=== PATIENT | female | born 1965 | race Caucasian/White ===

== ENCOUNTER 2016-03-09 19:44 | Emergency (ER) | payer BC ==
--- NOTE | 2016-03-09 20:08 | ED.PDOC ---
History of Present Illness - General Chief Complaint: GI Problem Stated Complaint: achy, N/V/D Time Seen by Provider: 03/09/16 20:08 Source: patient - History of Present Illness Initial Comments: Ms. Micah Patel 50 y/o f with history of metastatic melanoma stated that she had initial episode of diarrhea this am and also Ct abd/pelvis done this am and was able to do the procedure and drank the oral contrast that was done in [facility] then late this afternoon she started to have N/V and multiple episodes of diarrhea,fever with body aches.She also stated that she goes for chemotherapy every 3 weeks. Timing/Duration: other - this am Severity: moderate Improving Factors: nothing Worsening Factors: nothing Associated Symptoms: fever/chills, nausea/vomiting Allergies/Adverse Reactions: Allergies Aspirin [From Percodan] Allergy (Mild, Unverified 06/08/12 13:38) Oxycodone [From Percodan] Allergy (Mild, Unverified 06/08/12 13:38) Home Medications: Ambulatory Orders Megace Oral 03/09/16 Synthroid 03/09/16 Zofran 03/09/16 Review of Systems - Review of Systems Constitutional: States: see HPI EENTM: States: no symptoms reported Respiratory: States: no symptoms reported Cardiology: States: no symptoms reported Gastrointestinal/Abdominal: States: see HPI Genitourinary: States: no symptoms reported Musculoskeletal: States: muscle pain Skin: States: other - history of melanoma metastatic Neurological: States: no symptoms reported Endocrine: States: no symptoms reported Hematologic/Lymphatic: States: no symptoms reported Past Medical History (General) - Patient Medical History Hx Asthma: Yes Hx Congestive Heart Failure: No Hx Hypertension: Yes Hx Diabetes: No Hx Cancer: Yes - -diagnosed 2012 Surgical History: tonsillectomy Other Surgeries:: infusaport,excision bladder tumor - Vaccination History Hx Tetanus, Diphtheria Vaccination: Yes Hx Influenza Vaccination: No - Social History Hx Alcohol Use: No - Female History Patient is a Female of Child Bearing Age (10 -59 yrs old): No Patient : No Family Medical History - Family History Mother Family History: No Known Living Status: Hx Family Hypertension: Yes - mom Hx Cardiac Disease: Yes - dad Hx Family Diabetes: Yes - mom Physical Exam - Physical Exam General Appearance: Alert, No apparent distress Ears, Nose, Throat: hearing grossly normal, normal ENT inspection, normal pharynx Neck: non-tender, full range of motion, supple Respiratory: chest non-tender, lungs clear, normal breath sounds, no respiratory distress Cardiovascular/Chest: normal peripheral pulses, regular rate, rhythm, no edema, no gallop, no JVD, no murmur Gastrointestinal/Abdominal: normal bowel sounds, non tender, soft, no organomegaly, no pulsatile mass Back Exam: normal inspection, no CVA tenderness, no vertebral tenderness Extremity: normal range of motion, non-tender, normal inspection Neurologic: alert, normal mood/affect, oriented x 3 Skin Exam: normal color, warm/dry, cyanosis Lymphatic: no adenopathy Progress - Results/Orders Results/Orders: 03/09/16 20:10 Lactated Ringers [Lr] 1,000 ml IVS ONCE Chest,2 Views [RAD] Stat URINALYSIS Stat Laboratory Results WBC 11.5 K/mm3 (4.8-10.8) H 03/09/16 20:33 RBC 4.14 M/mm3 (4.20-5.40) L 03/09/16 20:33 Hgb 13.4 gm/dL (12.0-16.0) 03/09/16 20:33 Hct 38.8 % (36.0-47.0) 03/09/16 20:33 MCV 93.7 fl (81.0-99.0) 03/09/16 20:33 MCH 32.3 pg (27.0-31.0) H 03/09/16 20:33 MCHC 34.5 g/dL (33.0-37.0) 03/09/16 20:33 RDW 12.7 % (11.5-14.5) 03/09/16 20:33 Plt Count 230 K/mm3 (130-400) 03/09/16 20:33 MPV 7.5 fl (7.40-10.4) 03/09/16 20:33 Absolute Neuts (auto) 8.60 K/uL (1.8-6.8) H 03/09/16 20:33 Absolute Lymphs (auto) 1.70 K/uL (1.0-3.4) 03/09/16 20:33 Absolute Monos (auto) 0.80 K/uL (0.2-0.8) 03/09/16 20:33 Absolute Eos (auto) 0.40 K/uL (0.0-0.4) 03/09/16 20:33 Absolute Basos (auto) 0.10 K/uL (0.0-0.1) 03/09/16 20:33 Neutrophils % 74.6 % (42.0-78.0) 03/09/16 20:33 Lymphocytes % 14.4 % (20.0-50.0) L 03/09/16 20:33 Monocytes % 7.1 % (2.0-9.0) 03/09/16 20:33 Eosinophils % 3.3 % (1.0-5.0) 03/09/16 20:33 Basophils % 0.6 % (0.0-2.0) 03/09/16 20:33 Sodium 137 mmol/L (135-145) 03/09/16 20:33 Potassium 3.5 mmol/L (3.6-5.0) L 03/09/16 20:33 Chloride 107 mmol/L (101-111) 03/09/16 20:33 Carbon Dioxide 25 mmol/L (21-31) 03/09/16 20:33 Anion Gap 8.5 (12-18) L 03/09/16 20:33 BUN 12 mg/dL (7-18) 03/09/16 20:33 Creatinine 0.73 mg/dL (0.6-1.3) 03/09/16 20:33 BUN/Creatinine Ratio 16.4 (10-20) 03/09/16 20:33 Random Glucose 79 mg/dL (70-105) 03/09/16 20:33 Serum Osmolality 272.5 mOsm/L (275-295) L 03/09/16 20:33 Lactic Acid 1.0 mmol/L (0.5-2.2) 03/09/16 20:33 Calcium 8.4 mg/dL (8.4-10.2) 03/09/16 20:33 Total Bilirubin 1.0 mg/dL (0.2-1.0) 03/09/16 20:33 AST 38 IU/L (10-42) 03/09/16 20:33 ALT 20 IU/L (10-60) 03/09/16 20:33 Alkaline Phosphatase 73 IU/L (42-121) 03/09/16 20:33 Serum Total Protein 6.6 gm/dL (6.4-8.2) 03/09/16 20:33 Albumin 3.4 g/dl (3.2-5.5) 03/09/16 20:33 Globulin 3.2 gm/dL (2.3-3.5) 03/09/16 20: Albumin/Globulin Ratio 1.1 (1.1-1.9) 03/09/16 20: Lipase 37 U/L (22-51) 03/09/16 20:33 Flu swab-negative 03/09/16 21:16 CLOSTRIDIUM DIFFICILE AG/TOXIN Urgent Laboratory Results WBC 11.5 K/mm3 (4.8-10.8) H 03/09/16 20:33 RBC 4.14 M/mm3 (4.20-5.40) L 03/09/16 20:33 Hgb 13.4 gm/dL (12.0-16.0) 03/09/16 20:33 Hct 38.8 % (36.0-47.0) 03/09/16 20:33 MCV 93.7 fl (81.0-99.0) 03/09/16 20:33 MCH 32.3 pg (27.0-31.0) H 03/09/16 20:33 MCHC 34.5 g/dL (33.0-37.0) 03/09/16 20:33 RDW 12.7 % (11.5-14.5) 03/09/16 20:33 Plt Count 230 K/mm3 (130-400) 03/09/16 20:33 MPV 7.5 fl (7.40-10.4) 03/09/16 20:33 Absolute Neuts (auto) 8.60 K/uL (1.8-6.8) H 03/09/16 20:33 Absolute Lymphs (auto) 1.70 K/uL (1.0-3.4) 03/09/16 20:33 Absolute Monos (auto) 0.80 K/uL (0.2-0.8) 03/09/16 20: Absolute Eos (auto) 0.40 K/uL (0.0-0.4) 03/09/16 20:33 Absolute Basos (auto) 0.10 K/uL (0.0-0.1) 03/09/16 20:33 Neutrophils % 74.6 % (42.0-78.0) 03/09/16 20:33 Lymphocytes % 14.4 % (20.0-50.0) L 03/09/16 20:33 Monocytes % 7.1 % (2.0-9.0) 03/09/16 20:33 Eosinophils % 3.3 % (1.0-5.0) 03/09/16 20:33 Basophils % 0.6 % (0.0-2.0) 03/09/16 20:33 Sodium 137 mmol/L (135-145) 03/09/16 20:33 Potassium 3.5 mmol/L (3.6-5.0) L 03/09/16 20:33 Chloride 107 mmol/L (101-111) 03/09/16 20:33 Carbon Dioxide 25 mmol/L (21-31) 03/09/16 20:33 Anion Gap 8.5 (12-18) L 03/09/16 20:33 BUN 12 mg/dL (7-18) 03/09/16 20:33 Creatinine 0.73 mg/dL (0.6-1.3) 03/09/16 20:33 BUN/Creatinine Ratio 16.4 (10-20) 03/09/16 20:33 Random Glucose 79 mg/dL (70-105) 03/09/16 20:33 Serum Osmolality 272.5 mOsm/L (275-295) L 03/09/16 20:33 Lactic Acid 1.0 mmol/L (0.5-2.2) 03/09/16 20:33 Calcium 8.4 mg/dL (8.4-10.2) 03/09/16 20:33 Total Bilirubin 1.0 mg/dL (0.2-1.0) 03/09/16 20:33 AST 38 IU/L (10-42) 03/09/16 20:33 ALT 20 IU/L (10-60) 03/09/16 20:33 Alkaline Phosphatase 73 IU/L (42-121) 03/09/16 20:33 Serum Total Protein 6.6 gm/dL (6.4-8.2) 03/09/16 20:33 Albumin 3.4 g/dl (3.2-5.5) 03/09/16 20:33 Globulin 3.2 gm/dL (2.3-3.5) 03/09/16 20:33 Albumin/Globulin Ratio 1.1 (1.1-1.9) 03/09/16 20:33 Lipase 37 U/L (22-51) 03/09/16 20:33 Urine Color Yellow (Yellow) 03/09/16 21:17 Urine Appearance Clear (Clear) 03/09/16 21:17 Urine pH 5.0 (4.5-7.8) 03/09/16 21:17 Ur Specific [place] 1.010 (1.005-1.030) 03/09/16 21:17 Urine Protein Negative mg/dL 03/09/16 21:17 Urine Glucose (UA) Negative mg/dL (Negative) 03/09/16 21: Urine Ketones Negative mg/dL (NEGATIVE) 03/09/16 21:17 Urine Blood Large (Negative) H 03/09/16 21:17 Urine Nitrite Negative 03/09/16 21:17 Urine Bilirubin Negative (NEGATIVE) 03/09/16 21:17 Urine Urobilinogen 0.2 mg/dL (0.2-1.0) 03/09/16 21:17 Ur Leukocyte Esterase Trace (Negative) H 03/09/16 21:17 Urine RBC 5-10 /hpf H 03/09/16 21:17 Urine WBC 5-10 /hpf H 03/09/16 21:17 Ur Epithelial Cells 3-5 /hpf 03/09/16 21:17 Urine Bacteria Rare 03/09/16 21:17 No N/V/D while in er - EKG/XRAY/CT XRAY: chest - no acute abnormality noted Departure - Departure Clinical Impression: Acute viral syndrome, Acute diarrhea, Hx of malignant melanoma Nausea & vomiting Qualifiers: Vomiting Intractability: unspecified Time of Disposition: 22:24 Disposition: Discharge to Home or Self Care Departure Forms: ED Discharge - Pt. Copy, Patient Portal Self Enrollment Instructions: Probiotics May Decrease Intensity and Duration of Diarrhea Due to Infection, Diarrhea, Nausea and Vomiting-Adult Referrals: Sravanthi Brown NP [Primary Care Provider] - 1-2 Weeks Home Medications: Ambulatory Orders Megace Oral 03/09/16 Synthroid 03/09/16 Zofran 03/09/16 Additional Instructions: RETURN TO EMERGENCY ROOM NEEDED;Take Tylenol 500 mg. every 4-6 hors as needed for fever
[2016-03-09] MEDS: ONDANSETRON INJ 4 MG/2 ML VIAL IV ONE (20:21)
[2016-03-09] MEDS: LACTATED RINGERS 1,000 ML IVS ONE (20:22)
[2016-03-09 20:56] VITALS: TEMP 99.7
[2016-03-09 22:38] VITALS: BP 127/77; O2SAT 97
--- NOTE | 2016-03-12 14:09 | RAD ---
EXAM DESCRIPTION: Chest,2 Views CLINICAL HISTORY: fever COMPARISON: None FINDINGS: Cardiac silhouette is within normal limits. There is an infusion catheter with the tip ending at the level of the superior vena cava. There is no focal parenchymal or pleural disease. There is no acute osseous process visualized. IMPRESSION: No evidence of acute cardiopulmonary disease. Electronically signed by: Vaughn Nails MD 03/09/2016 8:47 PM TRIMMING OPERATOR
--- NOTE | 2016-04-06 03:55 | RAD ---
EXAM DESCRIPTION: Chest,2 Views CLINICAL HISTORY: fever COMPARISON: None FINDINGS: Cardiac silhouette is within normal limits. There is an infusion catheter with the tip ending at the level of the superior vena cava. There is no focal parenchymal or pleural disease. There is no acute osseous process visualized. IMPRESSION: No evidence of acute cardiopulmonary disease. Electronically signed by: Vaughn Nails MD 03/09/2016 8:47 PM COMPRESSOR STATION ENGINEER
== END 2016-03-09 22:37 | disposition home or self-care (01) ==
LOC: ER 19:44
DX: B34.9 Viral infection, unspecified (principal); R19.7 Diarrhea, unspecified; C43.9 Malignant melanoma of skin, unspecified; C79.9 Secondary malignant neoplasm of unspecified site; Z88.6 Allergy status to analgesic agent; Z79.899 Other long term (current) drug therapy; J45.909 Unspecified asthma, uncomplicated; I10 Essential (primary) hypertension
CPT/HCPCS: 71020; 80053; 81001; 83605; 83690; 85025; 87502; J2405; J7120

== ENCOUNTER → 2018-02-16 | Outpatient (CLI) | payer MEDICARE | LOC: RESP 11:32 | PROVIDERS: ATTEND Nurse Practitioner Family | DX: I10 Essential (primary) hypertension (principal) ==

== ENCOUNTER → 2018-03-15 | Outpatient (CLI) | payer MEDICARE | LOC: YCFC.O 12:09 | PROVIDERS: ATTEND Family Medicine | DX: B34.9 Viral infection, unspecified (principal) ==

== ENCOUNTER → 2018-04-05 | Outpatient (CLI) | payer MEDICARE ==
--- NOTE | 2018-04-06 12:30 | MAM ---
EXAM DESCRIPTION: k : Digital Mammography. CLINICAL HISTORY: 53 years Female ANNUAL SCREENING . No complaints. No personal history of breast cancer. Remote Family history of breast cancer. History of melanoma. Postmenopausal 8 years. No HRT. Lifetime risk of developing breast cancer (Tyrer-Cuzick model)(%): 10.7. COMPARISON: Baseline study at this facility.. No prior reports available. TECHNIQUE: Bilateral CC and MLO projection full-field images, digital tomosynthesis mammographic technique. Bilateral digital 2-D full-field MLO images. CAD not available for tomosynthesis or 2-D images. FINDINGS: The breast parenchymal density pattern is: Scattered areas of fibroglandular density. No skin thickening or nipple retraction. Focal asymmetry in the posterior third of the right breast at the 11:30 clock position, approximately 8 cm from the nipple. Also focal asymmetry retroareolar right breast extending into the upper outer quadrant approximately 2 cm from the nipple. Small bilateral solitary microcalcifications. No new focal, stellate mass or density, focal asymmetry , and no suspicious microcalcifications left breast. IMPRESSION: BI-RADS CATEGORY: 0 - INCOMPLETE- Need additional imaging evaluation. FOLLOW-UP: Recall for additional imaging: Targeted breast ultrasound of the regions of interest in the right breast. Consider follow-up diagnostic mammographic imaging if indicated by sonographic images.. Written communication concerning the IMPRESSION and Follow-up, will be mailed to the patient and referring health care provider. Electronically signed by: Rufus Prado MD 04/06/2018 12:27 PM POLICE MANAGER
== END ==
LOC: MAMMO 08:30
PROVIDERS: ATTEND Nurse Practitioner Family
DX: Z12.31 Encounter for screening mammogram for malignant neoplasm of breast (principal)

== ENCOUNTER → 2018-04-11 | Outpatient (CLI) | payer MEDICARE ==
--- NOTE | 2018-04-12 10:59 | US ---
EXAM DESCRIPTION: Breast,Right: Ultrasound CLINICAL HISTORY: 53 yearsFemaleABNORMAL MAMMO. Stage IV malignant melanoma. Pelvic metastasis. Currently remission. COMPARISON: Bilateral screening digital breast tomosynthesis 04/05/2018. TECHNIQUE: Transcutaneous scanning of the right breast utilizing polanco-scale and Doppler modes. Scanning performed by the national park ranger observed by Dr. Prado. FINDINGS: Scanning of the upper outer quadrant of the right breast. Specifically 8 cm from the nipple. Heterogeneous mixture of fibroglandular and fatty echotexture. No dominant solid mass or cyst. No parenchymal edema or large calcifications. No overlying skin changes. Normal vascularity. IMPRESSION: Benign exam. BIRAD CATEGORY: 2 BENIGN FINDINGS. RECOMMENDATIONS: FOLLOW UP: Return to routine digital bilateral mammographic screening, one year interval from March 2018. The FINDINGS and the FOLLOW-UP plan were reviewed in person with the patient after the examination. Written communication explaining the IMPRESSION and FOLLOW-UP will be mailed to the patient and referring care provider. According to the [employer], yearly mammograms are recommended starting at age 40 and continuing as long as a woman is in good health. Any breast change noted on a breast self-exam should be reported promptly to the patient's healthcare provider. Breast MRI is recommended for women with an approximately 20-25% or greater lifetime risk of breast cancer, including women with a strong family history of breast or ovarian cancer and women who have been treated for Hodgkin's disease. A negative mammographic report should not delay tissue diagnosis in patients with significant clinical history or physical findings. Extremely dense breast tissue limits the sensitivity of digital mammography. Electronically signed by: Rufus Prado MD 04/12/2018 10:56 AM [facility]
== END ==
LOC: US 14:09
PROVIDERS: ATTEND Nurse Practitioner Family
DX: R92.8 Other abnormal and inconclusive findings on diagnostic imaging of breast (principal)

== ENCOUNTER 2018-07-05 16:24 | Inpatient (IN) | payer MEDICARE ==
--- NOTE | 2018-07-05 17:04 | ED.PDOC ---
History of Present Illness - General Chief Complaint: GI Problem Stated Complaint: N/V/D, weakness Time Seen by Provider: 07/05/18 17:03 Source: patient Exam Limitations: no limitations - History of Present Illness Initial Comments: Modesta Patel 53 y/o female with history of melanoma and currently receiving chemotherapy came to ER with multiple episodes of N/V/D since last night.No blood in the stool,no hematemesis,no melena.Had recently received chemotherapy 4 weeks ago. Timing/Duration: 24 hours Severity: severe Improving Factors: nothing Worsening Factors: eating Associated Symptoms: shortness of breath, weakness, other - see hpi Allergies/Adverse Reactions: Allergies Aspirin [From Percodan] Allergy (Mild, Verified 07/05/18 16:48) Oxycodone [From Percodan] Allergy (Mild, Verified 07/05/18 16:48) Prochlorperazine [From Compazine] Allergy (Verified 07/05/18 16:48) Home Medications: Ambulatory Orders Megace Oral 03/09/16 Synthroid 03/09/16 Zofran 03/09/16 Review of Systems - Review of Systems Constitutional: States: see HPI, weakness EENTM: States: no symptoms reported Respiratory: States: no symptoms reported Cardiology: States: no symptoms reported Gastrointestinal/Abdominal: States: see HPI, diarrhea, vomiting Musculoskeletal: States: no symptoms reported Skin: States: see HPI Neurological: States: no symptoms reported All other Systems: Reviewed and Negative, No Change from Baseline Past Medical History (General) - Patient Medical History Hx Asthma: Yes Hx Congestive Heart Failure: No Hx Hypertension: Yes Hx Diabetes: No Hx Cancer: Yes - -diagnosed 2012;Melanoma Surgical History: other - Vaccination History Hx Tetanus, Diphtheria Vaccination: Yes Hx Influenza Vaccination: No Hx Pneumococcal Vaccination: No - Social History Hx Tobacco Use: Yes Hx Alcohol Use: No Hx Substance Use: No Hx Physical Abuse: No Hx Emotional Abuse: No Hx Suspected Abuse: No - Female History Patient is a Female of Child Bearing Age (10 -59 yrs old): No Patient : No Family Medical History - Family History Mother Family History: No Known Living Status: Hx Family Hypertension: Yes - mom Hx Cardiac Disease: Yes - dad Hx Family Diabetes: Yes - mom Physical Exam - Physical Exam General Appearance: Alert, Comfortable, No apparent distress Eye Exam: bilateral normal Ears, Nose, Throat: hearing grossly normal, normal ENT inspection, normal pharynx Neck: non-tender, full range of motion, supple, normal inspection Respiratory: chest non-tender, lungs clear, normal breath sounds, no respiratory distress Cardiovascular/Chest: normal peripheral pulses, regular rate, rhythm Peripheral Pulses: radial,right: 2+, radial,left: 2+ Gastrointestinal/Abdominal: normal bowel sounds, non tender, soft, no organomegaly Back Exam: no CVA tenderness, no vertebral tenderness Neurologic: alert, oriented x 3 Skin Exam: normal color, warm/dry Progress - Progress Progress: 07/05/18 20:36 Vital Signs - 8 hr 07/05/18 07/05/18 07/05/18 16:30 17:30 18:30 Temperature 100.5 F H 100.5 F H 100.4 F H Pulse Rate [ 117 H 100 H 102 H pulse ox] Respiratory 20 20 20 Rate Blood Pressure 84/56 87/59 92/67 [Right Arm] O2 Sat by Pulse 93 L 98 99 Oximetry 07/05/18 19:00 Temperature Pulse Rate [ 96 H pulse ox] Respiratory 22 Rate Blood Pressure 97/74 [Right Arm] O2 Sat by Pulse 98 Oximetry - Results/Orders Results/Orders: 07/05/18 16:50 URINALYSIS Stat 07/05/18 17:05 IV Care:Saline Lock per Protoc QSHIFT CLOSTRIDIUM DIFFICILE AG/TOXIN Urgent URINALYSIS Stat 07/05/18 18:30 Norepinephrine Bitartrate [Levophed] 4 mg Dextrose 5% 250Ml [D5W 250ml] 250 ml IVPB PRN 07/05/18 19:19 Sodium Chloride 0.9% 1000ML [Ns 1000 ml] 1,000 ml IVS ONCE 07/05/18 20:09 EKG Assessment ONCE 07/05/18 20:15 EKG STAT Laboratory Results - last 24 hr 07/05/18 07/05/18 07/05/18 17:02 17:02 17:02 WBC 7.7 RBC 5.47 H Hgb 16.8 H Hct 50.3 H MCV 91.9 MCH 30.7 MCHC 33.4 RDW 13.2 Plt Count 279 MPV 7.1 L Absolute Neuts (auto) 4.20 Absolute Lymphs (auto) 2.70 Absolute Monos (auto) 0.70 Absolute Eos (auto) 0.10 Absolute Basos (auto) 0.00 Neutrophils % 54.5 Lymphocytes % 34.6 Monocytes % 9.3 H Eosinophils % 1.0 Basophils % 0.6 PT INR PTT (SP) Sodium 133 L Potassium 3.3 L Chloride 104 Carbon Dioxide 17 L Anion Gap 15.3 BUN 28 H Creatinine 3.22 H BUN/Creatinine Ratio 8.7 L Random Glucose 93 Serum Osmolality 271.5 L Lactic Acid 1.1 Calcium 8.8 Total Bilirubin 0.6 AST 20 ALT 13 Alkaline Phosphatase 64 Creatine Kinase CK-MB (CK-2) CK-MB (CK-2) % Troponin I Serum Total Protein 7.3 Albumin 3.8 Globulin 3.5 Albumin/Globulin Ratio 1.1 07/05/18 07/05/18 07/05/18 17:11 17:11 19:17 WBC RBC Hgb Hct MCV MCH MCHC RDW Plt Count MPV Absolute Neuts (auto) Absolute Lymphs (auto) Absolute Monos (auto) Absolute Eos (auto) Absolute Basos (auto) Neutrophils % Lymphocytes % Monocytes % Eosinophils % Basophils % PT 11.9 H INR 1.19 H PTT (SP) 125.8 H* Sodium Potassium Chloride Carbon Dioxide Anion Gap BUN Creatinine BUN/Creatinine Ratio Random Glucose Serum Osmolality Lactic Acid Calcium Total Bilirubin AST ALT Alkaline Phosphatase Creatine Kinase 92 CK-MB (CK-2) 2.1 CK-MB (CK-2) % Not Reportable Troponin I 0.06 H 0.06 H Serum Total Protein Albumin Globulin Albumin/Globulin Ratio Discuss test result with patient and family;For hospital admit - EKG/XRAY/CT EKG: Sinus Comments: HR-94;TWI ant.leads XRAY: chest - no acute abnormalities Departure - Departure Clinical Impression: Nausea, vomiting and diarrhea, Acute dehydration, WILLIAM (acute kidney injury), History of malignant melanoma of skin, S/P chemotherapy, time since 4-12 weeks, Elevated troponin I measurement Time of Disposition: 21:01 Disposition: Admit Patient Condition: Fair Departure Forms: Patient Portal Self Enrollment Referrals: Quiana Greenwood NP [Primary Care Provider] - 1-2 Weeks Home Medications: Ambulatory Orders Megace Oral 03/09/16 Synthroid 03/09/16 Zofran 03/09/16 Decision To Admit - Decistion To Admit Decision to Admit Reason: Admit from ER Decision to Admit Date: 07/05/18 - D/W Lorelei Bruno-ANP/Hospitalist Decision to Admit Time: 20:58
[2018-07-05] MEDS ORDERED: LACTATED RINGERS 1,000 ML IVS ONE (17:05)
[2018-07-05] MEDS ORDERED: ONDANSETRON INJ 4 MG/2 ML VIAL IV ONE ×2 (17:06→19:31)
--- NOTE | 2018-07-05 17:42 | RAD ---
EXAM DESCRIPTION: XR Chest, 2 Views CLINICAL HISTORY: 53 years Female sob TECHNIQUE: Two views of the chest. COMPARISON: Comparison is made to the prior examination dated 03/09/2016. FINDINGS: Stable right chest wall permacath with its tip projecting over the SVC. The lungs are clear without focal consolidation, effusion, or pneumothorax. The cardiomediastinal silhouette and central pulmonary vasculature are normal. No acute osseous abnormalities. IMPRESSION: No acute cardiopulmonary abnormalities. Electronically signed by: An Torres MD 07/05/2018 5:40 PM CDT
[2018-07-05] MEDS ORDERED: NOREPINEPHRINE BITARTRATE 4 MG/4 ML VIAL IVPB ONE (18:26)
[2018-07-05] MEDS ORDERED: DEXTROSE 5% 250ML 250 ML ONE (18:26)
[2018-07-05] MEDS ORDERED: MEROPENEM 500 MG in SODIUM CHL 0.9% 50ML MIN-BAG+ 50 ML IVPB ONE (18:28)
[2018-07-05] MEDS ORDERED: NOREPINEPHRINE BITARTRATE 4 MG in DEXTROSE 5% 250ML 250 ML IVPB SCH (18:30)
[2018-07-05] MEDS ORDERED: MEROPENEM 500 MG VIAL IVPB ONE (18:41)
[2018-07-05] MEDS ORDERED: SODIUM CHL 0.9% 50ML MIN-BAG+ 50 ML IVPB ONE (18:41)
[2018-07-05] MEDS ORDERED: SODIUM CHLORIDE 0.9% 1000ML 1,000 ML ONE (19:18)
[2018-07-05] MEDS ORDERED: SODIUM CHLORIDE 0.9% 1000ML 1,000 ML IVS ONE (19:19)
[2018-07-05] MEDS ORDERED: ACETAMINOPHEN 325 MG TAB PO ONE (21:18)
--- NOTE | 2018-07-05 21:34 | HP ---
SUPERVISING PHYSICIAN: Bethel Gómez MD CHIEF COMPLAINT: Nausea, vomiting and diarrhea. HISTORY OF PRESENT ILLNESS: This is a 53-year-old female with a history of melanoma of the thigh of her right lower extremity. She is currently on chemotherapy. She came to the Emergency Room with several episodes of nausea, vomiting and diarrhea since Wednesday night. She denied any blood in her stool, no hematemesis, no melena. Her last chemotherapy treatment was 4 weeks ago. She is presently in the process of switching from Dr. Lima in [place] as her oncologist to a melanoma specialist at [facility]. She sees Dr. Mclain at [facility]. On Wednesday, she started having the nausea, vomiting and diarrhea that included some chills and a subjective fever. Her last chemotherapy as stated before was about a month ago. In the Emergency Room, her initial vital signs showed a temperature of 100.5 with a pulse rate of 117. Her blood pressure was 84/56 with a respiratory rate of 20, O2 saturation 93%. She received several liters of fluids and lab studies were done showing a WBC of 7.7. There was no left shift on differential. Her hemoglobin was 16.8 with hematocrit 50.3. PT was 11.9 with INR 1.19, PTT 125.8. Sodium 133, potassium 3.3, chloride 104, carbon dioxide 17, BUN 28, creatinine 3.22. Her baseline creatinine is about 0.7. Lactic acid was 1.8. The remainder of her metabolic panel including her liver function tests were negative. She did have a slightly elevated troponin of 0.06 and a repeat 2 hours later troponin also showed 0.06. She was also given some Merrem in the Emergency Room. A urinalysis was not obtained until she got to the floor. The urinalysis showed a moderate amount of urine blood with a small amount of urine leukocyte esterase, 5 to 10 urine RBCs, too numerous to count urine WBCs and 3+ urine bacteria. A urine culture was obtained. There were no blood cultures drawn in the Emergency Room. I was called for hospital admission. PAST MEDICAL HISTORY: 1. Malignant melanoma of the skin of the lower extremity. 2. Melanoma of the bladder. 3. Hypothyroidism on supplementation. 4. Hypertension on medications. 5. Kidney stones. PAST SURGICAL HISTORY: 1. Excision of melanoma on the right thigh. 2. Tubal ligation. 3. Tonsillectomy. 4. Three TURBTs to remove the bladder tumors. MEDICATIONS: Per the EMR and awaiting verification. ALLERGIES: PERCODAN. SOCIAL HISTORY: She is . She has two children. She lives in [place]. She smokes approximately 1 pack of cigarettes daily. She denies any ETOH or illicit drug use. REVIEW OF SYSTEMS: GENERAL: Positive for fever and chills. Negative for weight changes. HEENT: Negative for sinus symptoms, ear pain, vision changes or sore throat. RESPIRATORY: Negative for wheezing, coughing or shortness of breath. CARDIAC: Negative for chest pain, palpitations or tachycardia. GASTROINTESTINAL: As per history of present illness. GENITOURINARY: Negative for hematuria, dysuria or polyuria, although she has had decreased urine output. MUSCULOSKELETAL: Negative for arthralgias, myalgias. SKIN: History for malignant melanoma of the right thigh. Otherwise, no lesions or rashes. NEUROLOGIC: Negative for headache, dizziness or seizures. PHYSICAL EXAMINATION: VITAL SIGNS: Temperature 100.5. Heart rate 96. Blood pressure 98/58. Respiratory rate 16. O2 saturation 98% on room air. GENERAL: This is a 53-year-old female patient who is sitting up in her hospital bed. She is in no acute distress. HEENT: Normocephalic, atraumatic. Pupils are equal and reactive. Oropharynx is clear. Oral mucous membranes are dry. NECK: Supple without mass. RESPIRATORY: Essentially clear to auscultation bilaterally. CARDIOVASCULAR: Regular rate and rhythm. GASTROINTESTINAL: Abdomen is soft, nondistended, diffusely, mildly tender. Bowel sounds are positive. EXTREMITIES: No cyanosis, clubbing or edema. NEUROLOGIC: Awake, alert and oriented times three. Cranial nerves II-XII are grossly intact. SKIN: Warm and dry. LABORATORY: Labs and films are as per history of present illness. Chest x-ray shows no acute abnormalities. IMPRESSION: 1. Acute kidney injury, most likely secondary to dehydration. Her normal creatinine is 0.7. Her admission creatinine was 3.2. 2. Nausea, vomiting and diarrhea, most likely gastrointestinal in origin. 3. Severe dehydration, most likely secondary to #2 and exacerbating #1. 4. History of malignant melanoma of the right thigh, currently being treated with chemotherapy. 5. Hypertension on antihypertensive. 6. Hypothyroidism on supplementation. 7. Current smoker, although she has not smoked since Wednesday and encouraged to stop. 8. History of melanoma of the bladder. PLAN: We will admit the patient to the hospital. She will get D5W with 0.5 amp of bicarb overnight. I will recheck her labs in the morning. I have ordered stool studies if she has additional diarrhea and antiemetics for the nausea and vomiting. She does have an appointment with her melanoma specialist at [facility] tomorrow at 3 PM and she will need close followup with Dr. Mclain at [facility]. I will continue her home medications as soon as they are verified. I have encouraged her to stop smoking. She has a proton pump inhibitor for ulcer prophylaxis as well as Lovenox for DVT prophylaxis. I am not too worried about her troponin being elevated as she has had no current chest pain and is most likely due to her dehydration as well as her kidney injury. Otherwise, we will continue to monitor the patient closely and follow as needed. #[id number] [facility]
[2018-07-05] MEDS ORDERED: SODIUM CHLORIDE 0.9% (FLUSH) 10 ML SYG IV PRN (22:06)
[2018-07-05] MEDS ORDERED: ONDANSETRON INJ 4 MG/2 ML VIAL IV PRN (22:06)
[2018-07-05] MEDS ORDERED: ENOXAPARIN SODIUM 30 MG/0.3 ML SYG SUBCU ONE (22:26)
[2018-07-05] MEDS ORDERED: DEXTROSE 5% 1000ML 1,000 ML IVS ONE (22:26)
[2018-07-05] MEDS ORDERED: SODIUM BICARBONATE VIAL 50 MEQ/50 ML VIAL ONE (22:26)
[2018-07-05] MEDS ORDERED: IV SET AND CAP CHANGE INJ INJ SCH (22:30)
[2018-07-05] MEDS: SODIUM BICARBONATE VIAL 75 MEQ in DEXTROSE 5% 1000ML 1,000 ML IVS PRN (22:36)
[2018-07-05] MEDS: ENOXAPARIN SODIUM 30 MG/0.3 ML SYG SUBCU SCH (22:37)
[2018-07-06] MEDS: PANTOPRAZOLE SODIUM TAB 40 MG PO SCH (05:40)
[2018-07-06] MEDS: ACETAMINOPHEN 325 MG TAB PO PRN ×2 (06:04→20:50)
[2018-07-06] MEDS ORDERED: SODIUM BICARBONATE VIAL 50 MEQ/50 ML VIAL ONE (08:42)
[2018-07-06] MEDS ORDERED: DEXTROSE 5% 1000ML 1,000 ML IVS ONE (08:42)
[2018-07-06] MEDS: SODIUM BICARBONATE VIAL 75 MEQ in DEXTROSE 5% 1000ML 1,000 ML IVS PRN (08:54)
[2018-07-06] MEDS: SODIUM CHLORIDE 0.9% (FLUSH) 10 ML SYG IV SCH ×2 (09:36→20:49)
[2018-07-06] MEDS ORDERED: MAGNESIUM SULFATE PREMIX 2GM 2 GM in PREMIX BAG 1 BAG IVPB ONE (18:58)
[2018-07-06] MEDS ORDERED: MAGNESIUM SULFATE PREMIX 2GM 50 ML IVPB ONE (19:05)
[2018-07-06] MEDS: KCL 40 MEQ/D5 1/2NS 1,000 ML IVS PRN (19:08)
[2018-07-06] MEDS: ENOXAPARIN SODIUM 30 MG/0.3 ML SYG SUBCU SCH (20:45)
--- NOTE | 2018-07-06 21:14 | PN ---
DATE: 07/06/18 SUPERVISING PHYSICIAN: Dre Gómez M.D. SUBJECTIVE: The patient is reporting that she is feeling a little bit better this morning. She has not had any nausea or vomiting since last night. She is actually able to take some clear liquids. OBJECTIVE: VITAL SIGNS: Temperature 97.6, pulse 85, blood pressure 118/78, respirations 14, satting 97% on room air. Weight is 72.7 kg. GENERAL: The patient is resting comfortably. Appears to be in no acute distress. She is alert. CHEST: Lung sounds are clear to auscultation, just slightly diminished towards the bases. HEART: Regular rate and rhythm. ABDOMEN: Soft, non-tender. Positive bowel sounds. EXTREMITIES: Without any edema. NEUROLOGIC: She is alert and oriented times three. SKIN: Warm and dry. LABORATORY: White count 5,000, hemoglobin 14.4, hematocrit 42.5, platelet count 238,000. Differential shows to be without a left shift. Coagulation studies repeated today show PT 12.1 and PTT of 36.6 with yesterday's PTT showing 125 which was apparently an error on the lab draw. Stool occult blood was negative. Stool culture is pending. Stool leukocytes show to be positive. C-Difficile toxin A and B times 2 samples is negative. Urine culture was pending. ASSESSMENT: 1. Acute kidney failure probably due prerenal azotemia from severe dehydration from probable viral gastroenteritis with creatinine showing to be returning to baseline levels. 2. Nausea, vomiting and diarrhea, probably viral gastroenteritis. 3. Severe dehydration secondary to #2 improving with fluids. 4. History of malignant melanoma of the right thigh being treated and followed by oncology and just recently finished chemotherapy. 5. Hypertension showing to be stable. 6. Hypothyroidism on supplementation. 7. Chronic nicotine addiction in a chronic smoker. 8. History of melanoma of the bladder. 9. Elevated troponin likely bumped from acute kidney injury with the patient having no chest pain and 12-lead EKG showing sinus rhythm without any ST or T wave changes to indicate acute ischemia or injury pattern. PLAN: Will continue with fluids at this point with D5W and a half amp of bicarb. Recheck her labs at 1800 today and adjust as needed. Will continue to monitor stool cultures. She will continue with antiemetics for any nausea or vomiting. I have advanced her diet as tolerated. Anticipate hopefully being able to discharge tomorrow once she is able to transition to outpatient management and is tolerating oral intake adequately enough to stay hydrated. Until then will continue to monitor and treat as needed. #[id number] [facility]
[2018-07-07] MEDS: KCL 40 MEQ/D5 1/2NS 1,000 ML IVS PRN (05:23)
[2018-07-07] MEDS: PANTOPRAZOLE SODIUM TAB 40 MG PO SCH (06:08)
[2018-07-07 06:20] VITALS: TEMP 97.8
[2018-07-07 08:31] VITALS: O2SAT 98
[2018-07-07] MEDS: SODIUM CHLORIDE 0.9% (FLUSH) 10 ML SYG IV SCH (09:10)
[2018-07-07 10:08] VITALS: BP 120/78
--- NOTE | 2018-07-08 11:11 | DS ---
SUPERVISING PHYSICIAN: Bethel Gómez MD ADMISSION DIAGNOSIS: 1. Acute kidney injury, most likely secondary to dehydration. Her normal creatinine is 0.7. Her admission creatinine was 3.2. 2. Nausea, vomiting and diarrhea, most likely gastrointestinal in origin. 3. Severe dehydration, most likely secondary to #2 and exacerbating #1. 4. History of malignant melanoma of the right thigh, currently being treated with chemotherapy. 5. Hypertension on antihypertensive. 6. Hypothyroidism on supplementation. 7. Current smoker, although she has not smoked since Wednesday and encouraged to stop. 8. History of melanoma of the bladder. DISCHARGE DIAGNOSIS: 1. Acute kidney failure probably due severe dehydration from viral gastroenteritis with creatinine no down to baseline levels after fluids. 2. Nausea, vomiting and diarrhea, probably viral gastroenteritis, resolved with treatment. 3. Severe dehydration due to #2, resolved with fluids. 4. History of malignant melanoma of the right thigh being treated and followed by oncology and just recently finished chemotherapy. 5. Hypertension showing to be stable. 6. Hypothyroidism on supplementation. 7. Chronic nicotine addiction in a chronic smoker. 8. History of melanoma of the bladder. 9. Elevated troponin likely due to acute kidney from brief hypotensive event from severe dehydration with no EKG changes or chest pain episodes. REASON FOR HOSPITALIZATION: This is a 53-year-old female with a history of melanoma of the thigh of her right lower extremity. She is currently on chemotherapy. She came to the Emergency Room with several episodes of nausea, vomiting and diarrhea since Wednesday night. She denied any blood in her stool, no hematemesis, no melena. Her last chemotherapy treatment was 4 weeks ago. She is presently in the process of switching from Dr. Lima in [place] as her oncologist to a melanoma specialist at [facility]. She sees Dr. Mclain at [facility]. On Wednesday, she started having the nausea, vomiting and diarrhea that included some chills and a subjective fever. Her last chemotherapy as stated before was about a month ago. In the Emergency Room, her initial vital signs showed a temperature of 100.5 with a pulse rate of 117. Her blood pressure was 84/56 with a respiratory rate of 20, O2 saturation 93%. She received several liters of fluids and lab studies were done showing a WBC of 7.7. There was no left shift on differential. Her hemoglobin was 16.8 with hematocrit 50.3. PT was 11.9 with INR 1.19, PTT 125.8. Sodium 133, potassium 3.3, chloride 104, carbon dioxide 17, BUN 28, creatinine 3.22. Her baseline creatinine is about 0.7. Lactic acid was 1.8. The remainder of her metabolic panel including her liver function tests were negative. She did have a slightly elevated troponin of 0.06 and a repeat 2 hours later troponin also showed 0.06. She was also given some Merrem in the Emergency Room. A urinalysis was not obtained until she got to the floor. The urinalysis showed a moderate amount of urine blood with a small amount of urine leukocyte esterase, 5 to 10 urine RBCs, too numerous to count urine WBCs and 3+ urine bacteria. A urine culture was obtained. There were no blood cultures drawn in the Emergency Room. The patient was admitted in stable condition. LABORATORY: Initial white count 7,700, hemoglobin 16.8 and hematocrit 50.3. At discharge and after fluids, white count was 5,000, hemoglobin 14.4, hematocrit 42.5. Platelet count was normal at 238. Differential was without a left shift. Coagulation studies initially showed PT 11.9, PTT 125.8. Retesting showed PTT corrected to 36.6. Chemistries initially on admission showed sodium 133, potassium 3.3, carbon dioxide 17, BUN 28, creatinine 3.22 with lactic acid 1.1, magnesium 1.8, liver functions within normal limits. Troponin slightly bumped at 0.06. After fluids and prior to discharge and replacement of potassium and magnesium, sodium was normal at 138, potassium 3.3, carbon dioxide normalized at 21, anion gap normal at 11 with BUN 6, creatinine 0.68. Magnesium 2.1. Urinalysis showed moderate amount of blood with small leukocyte esterase. Microscopic showed 5 to 10 RBCs, too numerous to count WBCs, 10 to 20 epithelials, 1+ amorphus, small amount of mucus, 3+ bacteria. MICROBIOLOGY: Urine culture pending. She had two C. difficile toxins on stool that were negative. Stool culture pending. Stool leukocyte positive. RADIOLOGY: Chest x-ray on admission per radiologic interpretation showed no acute cardiopulmonary abnormalities. HOSPITAL COURSE: Ms. Patel was admitted for severe dehydration and acute renal failure which was felt to be from acute gastroenteritis, viral etiology. She was started on IV fluids given the severe acidosis indicated by the low CO2 and renal function with creatinine 3.22. She was started on D5W with bicarb supplementation. This was continued. She was monitored closely with repeat BMPs and as her values improved and her creatinine corrected, she was changed to fluids and then was able to tolerate oral fluids as well as a diet. She was clinically stable with labs returning to baseline levels. Again, she was felt to be clinically stable enough to continue with outpatient management. She did initially on admission have some mild hypotension in the Emergency Room that was noted with blood pressure 84/56, heart rate 117 with low grade fever of 100.5. She was given a single dose of Merrem as there was a concern that she may be septic, but she responded to treatment quickly with fluid resuscitation and was able to stabilize and required no further antibiotic treatment. She was asymptomatic with regards to the possible cystitis which was probably exacerbated from chronic urinary bladder problems from her multiple surgeries, but again the patient was asymptomatic. She was showing no signs of infection. Therefore, no antibiotics were started during her treatment course other than what was given in the Emergency Room. DISCHARGE ASSESSMENT: VITAL SIGNS: Temperature 97.8. Pulse 70. Blood pressure 120/70. Respirations 16. Saturation 98% on room air. GENERAL APPEARANCE: The patient was resting comfortably and appeared to be in no acute distress. She was alert. CHEST: Clear to auscultation bilaterally without any notable rales, rhonchi or wheezing. HEART: Regular rate and rhythm. ABDOMEN: Soft, nontender. Positive bowel sounds. EXTREMITIES: No edema. NEUROLOGIC: Alert and oriented x3. SKIN: [place], warm and dry. PLAN: Ms. Patel was discharged on 07/07/18 to closely followup with her oncologist and her primary care provider, Quiana Greenwood, or with Dr. Mclain. She was encouraged to push fluids to prevent dehydration. Again, she was talked to about stopping smoking. She was to advance her diet as tolerated. She was to resume all home medications as instructed. She was to return to the hospital should she have any concerning symptoms. No new medications were prescribed at discharge. DISPOSITION: The patient was discharged home to care of family members. CONDITION AT DISCHARGE: Stable and improving. #[id number] [facility]
== END 2018-07-07 10:05 | disposition home or self-care (01) | DRG 683 ==
LOC: ER 16:24 → OBSVTOIN 21:34 → MS 21:34
PROVIDERS: ADMIT Nurse Practitioner Acute Care; ATTEND Nurse Practitioner Family
DX: N17.9 Acute kidney failure, unspecified (principal); E87.2 Acidosis; E86.0 Dehydration; N30.90 Cystitis, unspecified without hematuria; A08.4 Viral intestinal infection, unspecified; I10 Essential (primary) hypertension; E03.9 Hypothyroidism, unspecified; I95.9 Hypotension, unspecified; R74.8 Abnormal levels of other serum enzymes; F17.210 Nicotine dependence, cigarettes, uncomplicated; Z85.820 Personal history of malignant melanoma of skin; Z92.21 Personal history of antineoplastic chemotherapy; Z88.5 Allergy status to narcotic agent; Z88.6 Allergy status to analgesic agent; Z88.8 Allergy status to other drugs, medicaments and biological substances; Z79.899 Other long term (current) drug therapy

== ENCOUNTER → 2018-09-19 | Outpatient (CLI) | payer MEDICARE ==
[~2018-09-19] MED LIST: HEPARIN SODIUM 100 U/ML 5 ML SYG IV ONE; SODIUM CHLORIDE 0.9% (FLUSH) 10 ML SYG IV ONE
== END ==
LOC: INFRM 13:19
PROVIDERS: ATTEND Family Medicine
DX: C43.70 Malignant melanoma of unspecified lower limb, including hip (principal)

== ENCOUNTER 2018-10-04 07:49 | Emergency (ER) | payer MEDICARE ==
[2018-10-04] MEDS ORDERED: IPRATROPIUM/ALBUTEROL 3 ML VIAL NEB ONE ×2 (07:50→07:57)
[2018-10-04] MEDS ORDERED: SODIUM CHLORIDE 0.9% (FLUSH) 10 ML SYG IV PRN (07:54)
--- NOTE | 2018-10-04 08:01 | ED.PDOC ---
History of Present Illness - General Chief Complaint: Respiratory Problem Stated Complaint: shortness of breath Time Seen by Provider: 10/04/18 07:54 Source: patient Exam Limitations: no limitations - History of Present Illness Initial Comments: URI STARTING 2 D AGO, CONGESTION. TODAY AWOKE WITH SOB. NO CP. NO H/O COPD OR ASTHMA. SMOKES BUT SUCCESSFULLY QUIT 2 MOS AGO. PT STATES SHE HAS A H/O SIMILAR ASTHMA EPISODE TRIGGERED BY BRONCHITIS. SATS 86% ON R.A IN ER. H/O TAKING MEGACE FOR ANOREXIA CAUSED BY CHEMOTHERAPY FOR MELANOMA. Timing/Duration: constant Severity: severe Activities at Onset: rest Possible Cause: illness exposure Improving Factors: nothing Worsening Factors: nothing Associated Symptoms: cough, wheezing Respiratory Risk Factors: exposure to illness Allergies/Adverse Reactions: Allergies Aspirin [From Percodan] Allergy (Mild, Verified 07/05/18 16:48) Oxycodone [From Percodan] Allergy (Mild, Verified 07/05/18 16:48) Prochlorperazine [From Compazine] Allergy (Verified 07/05/18 16:48) Home Medications: Ambulatory Orders Albuterol Inhaler [Ventolin Hfa Inhaler] 2 puff INH Q6H PRN #1 inh 10/04/18 Azithromycin Tab [Zithromax Tab] 250 mg PO DAILY #6 tab 10/04/18 Bupropion HCl [Bupropion Hydrochloride E] 150 mg PO BID 10/04/18 Levothyroxine Sodium [Synthroid] 100 mcg PO DAILY 10/04/18 Metoprolol Tartrate 50 mg PO BID 10/04/18 Potassium Chloride [K-Tab] 20 meq PO DAILY 10/04/18 Review of Systems - Review of Systems Constitutional: Denies: chills, fever EENTM: Denies: ear pain, nose congestion, throat swelling Respiratory: States: cough, short of breath, wheezing Cardiology: Denies: chest pain, palpitations Gastrointestinal/Abdominal: Denies: abdominal pain, constipation Genitourinary: States: no symptoms reported Musculoskeletal: States: no symptoms reported Skin: States: no symptoms reported Neurological: States: no symptoms reported Endocrine: States: no symptoms reported Hematologic/Lymphatic: States: no symptoms reported All other Systems: Reviewed and Negative Past Medical History (General) - Patient Medical History Hx Seizures: No Hx Stroke: No Hx Asthma: No Hx of COPD: No Hx Congestive Heart Failure: No Hx Pacemaker: No Hx Hypertension: Yes - not taking meds due to low BP Hx Diabetes: No Hx Cancer: Yes - -diagnosed 2013;Melanoma Hx MRSA: No - Vaccination History Hx Tetanus, Diphtheria Vaccination: Yes Hx Influenza Vaccination: No Hx Pneumococcal Vaccination: No - Social History Hx Tobacco Use: Yes Hx Alcohol Use: No Hx Substance Use: No Hx Physical Abuse: No Hx Emotional Abuse: No Hx Suspected Abuse: No - Female History Patient : No Family Medical History - Family History Mother Family History: No Known Living Status: Hx Family Hypertension: Yes - mom Hx Cardiac Disease: Yes - dad Hx Family Diabetes: Yes - mom Physical Exam - Physical Exam General Appearance: Alert, Obvious distress Eyes, Ears, Nose, Throat Exam: PERRL/EOMI, normal ENT inspection, TMs normal, pharynx normal Neck: non-tender, full range of motion, supple Respiratory: decreased breath sounds, wheezing Cardiovascular/Chest: normal peripheral pulses, regular rate, rhythm, no edema, no gallop, no JVD, no murmur Peripheral Pulses: radial,right: 2+, radial,left: 2+ Gastrointestinal/Abdominal: normal bowel sounds, non tender, soft Extremity: normal range of motion, normal inspection, no pedal edema, no calf tenderness Neurologic: no motor/sensory deficits, alert Skin Exam: normal color, warm/dry Lymphatic: no adenopathy Progress - Progress Progress: 10/04/18 08:22 DYSPNEA AND WHEEZE RESOLVED WITH DUONEB TX X 1. 10/04/18 09:31 CBC - NEUTROPHILIC LEUKOCYTOSIS. CXR, EKG, CMP WNL. IMPROVED WITH DUONEBS. REACTIVE AIRWAY DZ FROM RESP IFXN. RX ALB INH. SAFE FOR DC TO HOME. 10/04/18 09:33 - EKG/XRAY/CT EKG: Sinus, no ST T wave changes Departure - Departure Clinical Impression: Hypoxia, Acute lower respiratory infection, Neutrophilic leukocytosis Dyspnea Qualifiers: Dyspnea type: shortness of breath Qualified Code(s): R06.02 - Shortness of breath; R06.00 - Dyspnea, unspecified; R06.01 - Orthopnea Reactive airway disease with wheezing with acute exacerbation Qualifiers: Asthma severity: mild Asthma persistence: intermittent Qualified Code(s): J45.21 - Mild intermittent asthma with (acute) exacerbation Disposition: Discharge to Home or Self Care Condition: Good Departure Forms: ED Discharge - Pt. Copy, Patient Portal Self Enrollment Instructions: Acute Bronchitis, Adult (DC) Diet: resume usual diet Activity: increase activity as tolerated Referrals: Quiana Greenwood NP [Primary Care Provider] - 1-2 Weeks Prescriptions: Albuterol Inhaler [Ventolin Hfa Inhaler] 2 puff INH Q6H PRN #1 inh PRN Reason: WHEEZE Azithromycin Tab [Zithromax Tab] 250 mg PO DAILY #6 tab Home Medications: Ambulatory Orders Albuterol Inhaler [Ventolin Hfa Inhaler] 2 puff INH Q6H PRN #1 inh 10/04/18 Azithromycin Tab [Zithromax Tab] 250 mg PO DAILY #6 tab 10/04/18 Bupropion HCl [Bupropion Hydrochloride E] 150 mg PO BID 10/04/18 Levothyroxine Sodium [Synthroid] 100 mcg PO DAILY 10/04/18 Metoprolol Tartrate 50 mg PO BID 10/04/18 Potassium Chloride [K-Tab] 20 meq PO DAILY 10/04/18
--- NOTE | 2018-10-04 08:19 | RAD ---
EXAM DESCRIPTION: Chest,1 View CLINICAL HISTORY: 53 years Female, dysnpea x 1 d COMPARISON: July 05, 2018 TECHNIQUE: AP portable chest. FINDINGS: Lungs are clear. No consolidation. Heart normal size. Right IJ port in good position unchanged. IMPRESSION: Normal. Electronically signed by: Mario Foley MD 10/04/2018 8:17 AM CDT
[2018-10-04] MEDS ORDERED: HEPARIN SODIUM 100 U/ML 5 ML SYG IV ONE (09:38)
[2018-10-04 09:52] VITALS: BP 133/106; TEMP 99.4; O2SAT 92
== END 2018-10-04 09:51 | disposition home or self-care (01) ==
LOC: ER 07:49
DX: J45.21 Mild intermittent asthma with (acute) exacerbation (principal); J22 Unspecified acute lower respiratory infection; R09.02 Hypoxemia; D72.828 Other elevated white blood cell count; C43.9 Malignant melanoma of skin, unspecified; Z87.891 Personal history of nicotine dependence; Z79.899 Other long term (current) drug therapy; Z88.6 Allergy status to analgesic agent; Z88.5 Allergy status to narcotic agent; Z88.8 Allergy status to other drugs, medicaments and biological substances; Z92.21 Personal history of antineoplastic chemotherapy
CPT/HCPCS: 36415; 71045; 80053; 85025; 93005; 94640; 94760; J1642; J7620

== ENCOUNTER → 2018-11-22 | Outpatient (CLI) | payer MEDICARE | LOC: INFRM 08:40 → EDSTATUS 08:44 | PROVIDERS: ATTEND Family Medicine | DX: Z45.2 Encounter for adjustment and management of vascular access device (principal) ==

== ENCOUNTER 2018-12-29 12:46 | Outpatient (CLI) | payer MEDICARE ==
[2018-12-29] MEDS ORDERED: HEPARIN SODIUM 100 U/ML 5 ML SYG IV ONE (13:03)
[2018-12-29] MEDS ORDERED: SODIUM CHLORIDE 0.9% (FLUSH) 10 ML SYG IV ONE (13:03)
[2019-01-26 15:27] VITALS: BP 121/74; TEMP 98.1; O2SAT 98
[2019-01-26] MEDS ORDERED: HEPARIN SODIUM 100 U/ML 5 ML SYG IV ONE ×2 (15:27)
[2019-01-26] MEDS ORDERED: SODIUM CHLORIDE 0.9% (FLUSH) 10 ML SYG IV ONE ×2 (15:27)
== END 2019-01-26 02:00 | disposition home or self-care (01) ==
LOC: INFRM 12:46
PROVIDERS: ATTEND Family Medicine
DX: C43.70 Malignant melanoma of unspecified lower limb, including hip (principal); Z45.2 Encounter for adjustment and management of vascular access device; E03.9 Hypothyroidism, unspecified
CPT/HCPCS: A4216; J1642

== ENCOUNTER → 2019-07-07 | Outpatient (CLI) | payer MEDICARE ==
[~2019-07-07] MED LIST changes: +INSULIN 70/30 (HUMAN) 100 UNITS/ML PEN SUBCU ONE
[2019-07-07 11:54] VITALS: BP 124/78; TEMP 97.2; O2SAT 99
== END ==
LOC: INFRM 11:47
PROVIDERS: ATTEND Family Medicine
DX: C43.70 Malignant melanoma of unspecified lower limb, including hip (principal)
CPT/HCPCS: A4216; G0463; J1642

== ENCOUNTER → 2019-09-20 | Outpatient (CLI) | payer MEDICARE | LOC: YCFC.O 07:59 | PROVIDERS: ATTEND Family Medicine | DX: E03.9 Hypothyroidism, unspecified (principal); I10 Essential (primary) hypertension; E78.5 Hyperlipidemia, unspecified ==

== ENCOUNTER → 2019-09-22 | Outpatient (CLI) | payer MEDICARE ==
--- NOTE | 2019-09-22 14:13 | CT ---
EXAM DESCRIPTION: Chest w/wo Contrast CLINICAL HISTORY: 54 years Female, MALIGNANT MELANOMA COMPARISON: Chest radiograph 10/04/2018. CT abdomen and pelvis 06/19/2014. TECHNIQUE: CT images through the chest without and with IV contrast. Multiplanar reformations provided. This exam was performed according to our departmental dose-optimization program, which includes automated exposure control, adjustment of the mA and/or kV according to patient size and/or use of iterative reconstruction technique. CT CHEST FINDINGS: Heart and mediastinum: Normal heart size. No pericardial effusion. Unremarkable esophagus. Mild atherosclerosis. Partially calcified right paratracheal lymph nodes. Infusion port in right chest wall with its right subclavian catheter terminating in the superior vena cava. No evidence of adenopathy. Bihilar lymph nodes measure no greater than a millimeter short axis. Thyroid Gland: Normal. Lungs: Centrilobular emphysematous changes bilaterally. Airways: Normal. Pleura: Normal. Musculoskeletal and Soft Tissues: No acute fracture or aggressive appearing osseous lesion. Soft tissues unremarkable. Subphrenic Structures: Normal. IMPRESSION: 1. No acute abnormality of the chest. 2. Centrilobular emphysema. Electronically signed by: Homer Stovall MD 09/22/2019 2:11 PM CDT
== END ==
LOC: CT 09:06
PROVIDERS: ATTEND Family Medicine
DX: C43.9 Malignant melanoma of skin, unspecified (principal); J43.2 Centrilobular emphysema

== ENCOUNTER → 2019-09-25 | Outpatient (CLI) | payer MEDICARE ==
--- NOTE | 2019-09-25 14:59 | CT ---
EXAM DESCRIPTION: CT ABDOMEN AND PELVIS WITHOUT AND WITH CONTRAST CLINICAL HISTORY: MALIGNANT MELANOMA COMPARISON: None Available. TECHNIQUE: CT of the abdomen and pelvis are performed prior to and during IV bolus intravenous contrast. No oral contrast was given. FINDINGS: The lung bases are clear. The liver is mildly enlarged measuring 19 cm in craniocaudal dimension. Normal hepatic contour and enhancement. No focal hepatic lesion. Small gallstone within the gallbladder (axial image 38). No evidence of acute cholecystitis on CT. The spleen is normal in size. The pancreas and adrenals enhance normally. No adrenal nodule. The bilateral kidneys are normal in size, contour, and enhancement. No hydronephrosis, nephrolithiasis, or perinephric fluid collection. The ureters are normal in caliber without stone or obstruction. No focal bowel wall thickening or bowel obstruction. The appendix is normal. No free fluid within the pelvis. The bladder is normal in appearance. Mild prominent superior periaortic lymph node measures 7 mm short axis (series 4 image 20) can be reactive. No morphologically suspicious lymph nodes. No suspicious sclerotic or lytic osseous lesion. IMPRESSION: 1. No evidence of metastatic disease within the abdomen or pelvis on CT. 2. Cholelithiasis. This exam was performed according to our departmental dose-optimization program, which includes automated exposure control, adjustment of the mA and/or kV according to patient size and/or use of iterative reconstruction technique. Electronically signed by: Dennis Medellin DO 09/25/2019 2:56 PM CDT
--- NOTE | 2019-09-25 15:09 | CT ---
EXAM DESCRIPTION: Lower Extremity w/Contrast CLINICAL HISTORY: MALIGNANT MELANOMA COMPARISON: None Available. TECHNIQUE: Right lower extremity CT is performed with thin-section axial imaging after the administration of intravenous contrast. MPRs are created and reviewed as well. FINDINGS: Surgical clips are noted along the right inguinal region which may related to lymph node dissection. Few scattered nonenlarged lymph nodes are present within the right inguinal region measuring 5 mm (series 6 image 40) and 5 mm within the right external iliac region (series 6 image 14). No enlarged lymph node by CT criteria. No right lower extremity soft tissue mass or abnormal enhancement. No suspicious sclerotic or lytic osseous lesion. No fluid collection. IMPRESSION: 1. Right inguinal lymph nodes measures up to 5 mm short axis. No enlarged or morphologically suspicious lymph nodes by CT. 2. No evidence of right lower extremity mass. This exam was performed according to our departmental dose-optimization program, which includes automated exposure control, adjustment of the mA and/or kV according to patient size and/or use of iterative reconstruction technique. Electronically signed by: Dennis Medellin DO 09/25/2019 3:08 PM CDT
== END ==
LOC: CT 08:50
PROVIDERS: ATTEND Family Medicine
DX: C43.9 Malignant melanoma of skin, unspecified (principal); K80.20 Calculus of gallbladder without cholecystitis without obstruction

== ENCOUNTER → 2019-10-25 | Outpatient (CLI) | payer MEDICARE | LOC: INFRM 09:58 | PROVIDERS: ATTEND Family Medicine | DX: C43.70 Malignant melanoma of unspecified lower limb, including hip (principal); I10 Essential (primary) hypertension ==

== ENCOUNTER → 2019-12-21 | Outpatient (CLI) | payer MEDICARE | LOC: YCFC.O 11:30 | PROVIDERS: ATTEND Nurse Practitioner Family | DX: Z20.828 Contact with and (suspected) exposure to other viral communicable diseases (principal); R50.9 Fever, unspecified ==

== ENCOUNTER → 2020-01-24 | Outpatient (CLI) | payer MEDICARE ==
--- NOTE | 2020-01-25 07:26 | MRI ---
EXAM DESCRIPTION: MRI pelvis without and with contrast CLINICAL HISTORY: Melanoma of the bladder. Previous tumor removal. Chemotherapy. Recent abnormal CT scan with thickened bladder wall. Assess for neoplasm recurrence COMPARISON: CT 09/25/2019 TECHNIQUE: Multiplanar, multisequence MR images of the pelvis, pre and post intravenous gadolinium contrast FINDINGS: Urinary bladder is nondistended. Mildly thickened trabeculated urinary bladder wall may relate to chronic muscle hypertrophy and possibly remote inflammation from previous therapy. No acute inflammation. No edema or pathologic enhancement. No focal bladder mass lesion. Normal appearance of the urethra No pelvic visceral mass lesion. No adenopathy. Small bilateral inguinal and ileocecal mesenteric lymph nodes. No mass lesion or inflammatory process in the small or large intestine included in the [id number] No muscle, bony or other soft tissue mass lesion to diagnose metastatic disease. IMPRESSION: No mass lesion or adenopathy in the pelvis to suggest new/recurrent tumor or metastatic disease Electronically signed by: Abraham Barone MD 01/25/2020 7:25 AM [facility]
== END ==
LOC: MRI 07:51
PROVIDERS: ATTEND Internal Medicine Hematology & Oncology
DX: Z01.812 Encounter for preprocedural laboratory examination (principal); C79.9 Secondary malignant neoplasm of unspecified site